=== PATIENT | female | born 1980 | race Caucasian/White ===

== ENCOUNTER 2017-08-16 13:44 | Emergency (ER) | payer OTHER ==
[2017-08-16 14:16] LABS: BILIRUBIN NEGATIVE (NEGATIVE); BLOOD NEGATIVE Ery/uL (NEGATIVE); CLARITY SLIGHTLY HAZY (CLEAR); COLOR YELLOW (YELLOW); GLUCOSE (U) NORMAL (NORMAL); KETONE (U) NEGATIVE (NEGATIVE); LEUKOCYTES NEGATIVE Leu/uL (NEGATIVE); NITRITE NEGATIVE (NEGATIVE); PROTEIN NEGATIVE (NEGATIVE); SPECIFIC GRAVITY <=1.005 (1.001-1.030); UROBILINOGEN 0.2 mg/dL (0.2-1.0)
[2017-08-16 15:29] LABS: BASOPHIL 0.5 % (0-2); EOSINOPHIL 7.7 % (0-5); HCT 39.3 % (37.0-47.0); HGB 13.2 g/dl (12.5-16.0); LYMPHOCYTE 13.3 % (15-48); MCH 28.9 pg (25.0-31.0); MCHC 33.6 g/dL (32.0-36.0); MONOCYTE 13.5 % (0-12); MPV 10.4 fL (6.0-9.5); PLT 239 K/uL (150-400); RBC 4.57 M/uL (4.20-5.40); RDW 12.5 % (11.5-14.0); WBC 3.8 K/uL (4.0-10.5)
[2017-08-16 15:46] LABS: CREATININE 0.8 mg/dL (0.5-1.0); POTASSIUM 3.8 mmol/L (3.5-5.1)
== END 2017-08-16 17:43 | disposition home or self-care (01) ==
LOC: FER 13:44
PROVIDERS: Emergency Medicine; Nurse Practitioner Family
DX: G43.909 Migraine, unspecified, not intractable, without status migrainosus (principal); Z88.5 Allergy status to narcotic agent; Z88.8 Allergy status to other drugs, medicaments and biological substances
CPT/HCPCS: 36415; 80048; 81003; 85025; 87450; 87804; 87899; J1100; J1885; J2765